=== PATIENT | male | born 1960 | race Caucasian/White ===

== ENCOUNTER → 2019-04-06 | Outpatient (CLI) | payer OTHER ==
[~2019-04-06] MED LIST: ATIVAN0.5 MG; FLONASE; LISINOPRIL20 MG; NEXIUM; NORCO 5-325 TA1 EACH PO; SIMVASTATIN40 MG; VITAMIN D 5050000 I1
[2019-04-06 09:54] LABS: ABSOLUTE EOSINOPHILS 0.2 thou/uL (0.0-0.7); ABSOLUTE LYMPHOCYTES 1.5 thou/uL (0.8-5.3); ABSOLUTE MONOCYTES 0.4 thou/uL (0.0-1.2); ABSOLUTE NEUTROPHILS 2.5 thou/uL (1.6-8.1); BASOPHILS 0.8 %; EOSINOPHILS 3.5 %; HEMATOCRIT 45.6 % (42.0-52.0); HEMOGLOBIN 15.5 gm/dL (14.0-18.0); LYMPHOCYTES 32.5 %; MCH 29.2 pg (26.0-34.0); MCHC 34.1 g/dL (28.0-37.0); MCV 85.7 fL (80.0-100.0); MONOCYTES 7.7 %; MPV 7.7 fl. (7.2-11.1); NUCLEATED RBCS 0 /100WBC; PLATELET COUNT* 141 thou/uL (150-400); POLYS 55.5 %; RBC 5.32 mil/uL (4.50-6.00); WBC 4.6 thou/uL (4.0-11.0)
[2019-04-06 09:59] LABS: URINE BILIRUBIN NEGATIVE (Negative); URINE BLOOD NEGATIVE (Negative); URINE CLARITY CLEAR; URINE COLOR YELLOW; URINE GLUCOSE-RANDOM NEGATIVE (Negative); URINE KETONES NEGATIVE (Negative); URINE LEUKOCYTES-REFLEX NEGATIVE (Negative); URINE NITRITE-REFLEX NEGATIVE (Negative); URINE PROTEIN NEGATIVE (Negative); URINE SPECIFIC GRAVITY <= 1.005 (1.005-1.030); URINE UROBILINOGEN 0.2 E.U./dl (0.2-1.0)
[2019-04-06 10:03] LABS: ALBUMIN 4.1 g/dL (3.4-5.0); ALKALINE PHOSPHATASE 82 U/L (46-116); ANION GAP 5 mmol/L (7-16); BUN 15 mg/dL (7-18); CHLORIDE 106 mmol/L (98-107); CHOLESTEROL 173 mg/dL (<200); CO2 31 mmol/L (21-32); CREATININE 1.1 mg/dL (0.6-1.3); GLUCOSE 99 mg/dL (70-99); HDL CHOLESTEROL 38 mg/dL (>40); LDL CHOLESTEROL 114 mg/dL (<100); POTASSIUM 3.7 mmol/L (3.5-5.1); SERUM ASSESSMENT Clear; SGOT 27 U/L (15-37); SGPT 36 U/L (30-65); SODIUM 142 mmol/L (136-145); TC:HDL 4.6 Ratio (Not establshd); TOTAL BILIRUBIN 0.7 mg/dL (<0.1-1.0); TOTAL PROTEIN 7.3 g/dL (6.4-8.2); TRIGLYCERIDE 105 mg/dL (<150); VLDL 21 mg/dL (<40)
[2019-04-06 10:58] LABS: ESR (SEDRATE) 2 mm/hr (0-20)
[2019-04-06 23:08] LABS: GLYCOHEMOGLOBIN (HGB A1C) 5.7 % (4.8-5.6)
== END ==
LOC: M.LAB 09:18
PROVIDERS: Internal Medicine
DX: J01.21 Acute recurrent ethmoidal sinusitis (principal); R53.81 Other malaise

== ENCOUNTER → 2019-08-26 | Outpatient (CLI) | payer OTHER ==
[2019-08-26 17:59] LABS: ABSOLUTE BASOPHILS 0.1 thou/uL (0.0-0.2); ABSOLUTE EOSINOPHILS 0.2 thou/uL (0.0-0.7); ABSOLUTE MONOCYTES 0.5 thou/uL (0.0-1.2); BASOPHILS 0.9 %; EOSINOPHILS 2.7 %; HEMATOCRIT 42.5 % (42.0-52.0); HEMOGLOBIN 15.1 gm/dL (14.0-18.0); LYMPHOCYTES 29.5 %; MCH 29.5 pg (26.0-34.0); MCHC 35.4 g/dL (28.0-37.0); MCV 83.3 fL (80.0-100.0); MONOCYTES 7.2 %; MPV 7.4 fl. (7.2-11.1); NUCLEATED RBCS 0 /100WBC; PLATELET COUNT* 160 thou/uL (150-400); POLYS 59.7 %; RDW-CV 14.3 % (10.5-14.5); WBC 6.6 thou/uL (4.0-11.0)
[2019-08-26 18:20] LABS: ALBUMIN 4.3 g/dL (3.4-5.0); CALCIUM 8.6 mg/dL (8.5-10.1); CREATININE 1.1 mg/dL (0.6-1.3); MAGNESIUM 2.1 mg/dL (1.8-2.4); POTASSIUM 3.8 mmol/L (3.5-5.1); TOTAL BILIRUBIN 0.5 mg/dL (<0.1-1.0); TOTAL PROTEIN 7.3 g/dL (6.4-8.2)
[2019-08-26 18:24] LABS: % SATURATION 19 % (20-39); IRON 62 ug/dL (50-175)
[2019-08-26 19:12] LABS: ESR (SEDRATE) 1 mm/hr (0-20)
== END ==
LOC: M.LAB 17:02
PROVIDERS: Internal Medicine
DX: R05 Cough (principal); R51 Headache; R53.83 Other fatigue; R09.89 Other specified symptoms and signs involving the circulatory and respiratory systems; R50.9 Fever, unspecified

== ENCOUNTER → 2019-09-08 | Outpatient (CLI) | payer OTHER ==
--- NOTE | 2019-09-14 15:35 | SLEEP ---
[address] [address] SLEEP STUDY REPORT Name: JOSE MARIA GOLDSTEIN Room: [facility]#: [id number] Admission: 09/08/19 Attend Phys: Jason Kay MD Discharge: Date of : 60 Report #: [id number] THIS REPORT FOR: //name// CC: Jason Kay This study has been reviewed in its entirety by a board certified sleep specialist DATE OF SERVICE: 09/08/2019 SLEEP STUDY REFERRING PHYSICIAN: The patient is 58-year-old who weighs 184 pounds with a BMI of 28.8. The patient's [place] score was 10. The patient underwent home sleep study performed at [facility]. Total recording time was 528 minutes. During the night study, the patient had 274 obstructive apneas, no central or mixed apneas and 44 hypopneas. The patient's apnea hypopnea index was 38 per hour. Nocturnal oximetry study revealed an average oxygen saturation of 92% with the lowest of 74%. 67% of time oxygen saturation remained less than 90% and 21% time remained less than 85%. Mean heart rate 60 beats per minute. IMPRESSION: 1. Severe sleep apnea-hypopnea syndrome at an AHI of 38 per hour. 2. Alzklghp-hz-iivxds nocturnal hypoxia secondary to obstructive sleep apnea. RECOMMENDATIONS: 1. The patient would benefit from treatment of sleep apnea with CPAP. This can be done as an in-lab CPAP titration study versus home auto-titration study. 2. Once the patient is optimally treated with CPAP, then follow up in 4-6 weeks to assess compliance and to document clinical improvement. 3. Weight loss is advised. 4. Avoid [employer] depressants. 5. Caution regarding driving until symptoms of sleep apnea resolved with the use of CPAP. <ELECTRONICALLY SIGNED> By: Alexander Sheppard MD 09/14/19 1535 [id number] [id number] Sheppard MD /nt
== END ==
LOC: M.SLEEPLAB 09-04 14:30
DX: G47.30 Sleep apnea, unspecified (principal); G47.33 Obstructive sleep apnea (adult) (pediatric); R09.02 Hypoxemia

== ENCOUNTER → 2019-09-14 | Outpatient (CLI) | payer OTHER ==
--- NOTE | 2019-09-14 16:32 | CARDNUC ---
[place] [address] CARDIAC NUCLEAR IMAGING REPORT Name: JOSE MARIA GOLDSTEIN Room: [facility]#: [id number] Admission: 09/14/19 Attend Phys: Jason Kay, Discharge: Date of : 60 Date of Service: 09/14/19 1631 Report #: [id number] THIS REPORT FOR: //name// APPROVED REPORT Imaging Protocol: Rest Tc-99m/Stress Tc-99m 1 day Study performed: 09/14/2019 09:41:16 Indication: Fatigue Patient Location: Out-Patient Stress Tech: Nichelle Mccain Stress Nurse: Ivelisse Lira RN NM Tech:FRANKLIN Nunez Ht: 5 ft 7 in Wt: 185 lbs BSA: 1.96 m2 BMI: 28.97 Medical History Medical History: Angina, Fatigue, HTN, Hyperlipidemia. Medications: Lisinopril, Simvastatin. Allergies: Augmentin, Avelox, Doxycycline, Morphine, Nitrous Oxide. Cardiac Risk Factors: Age, FHX of CAD, HTN, Hyperlipidemia. Previous Cardiac Procedures: None Pretest Chest Pain Characteristics: No chest pain Exercise History: Physically active Physical Disabilities: None reported Meds Held (24 hrs): Lisinopril Resting Data Rest SPECT myocardial perfusion imaging was performed in supine position 30 minutes following the intravenous injection of 11.3 mCi of Tc-99m Sestamibi. Time of rest injection: 744 Date: 09/14/2019 The images were gated to evaluate regional wall motion and calculate left ventricular ejection fraction. Administration Route: IV Administration Site: Right AC Exercise Stress At peak stress, the patient was injected intravenously with 32.4mCi of Tc-99m Sestamibi. Time of stress injection: 944 Date: 09/14/2019 Administration Route: IV Administration Site: [place] [address] CARDIAC NUCLEAR IMAGING REPORT Name: JOSE MARIA GOLDSTEIN Room: [facility]#: [id number] Admission: 09/14/19 Attend Phys: Jason Kay, Discharge: Date of : 60 Date of Service: 09/14/19 1631 Report #: [id number] Gated Stress SPECT was performed 30 minutes after stress injection. The images were gated to evaluate regional wall motion and calculate left ventricular ejection fraction. Prone imaging was performed. Stress Test Details Stress Test: Exercise stress testing was performed using a Onofre protocol. HR Max Heart Rate (APMHR): 162 bpm Resting HR: 84 bpm Target HR (85% APMHR): 137 bpm Max HR Achieved: 152 bpm % of APMHR: 93 Recovery HR: 102 bpm BP Resting BP: 167/112 mmHg Max BP: 221/101 mmHg Recovery BP: 155/110 mmHg ECG Resting ECG: Sinus Rhythm Stress ECG: Sinus Tachycardia ST Change: None Arrhythmia: None Recovery ECG: Sinus Rhythm Recovery ST Change: None Recovery Arrhythmia: None Clinical Reason for Termination: Maximal effort, Completed protocol Stress Symptoms: Leg Fatigue, Dyspnea. Exercise duration: 8 min 54 sec Exercise capacity: 10.16 METs Overall Exercise Capacity for Age: Normal The patient tolerated standard Onofre protocol exercise without significant cardiac symptoms. Nurse Comments A 58 year old male presented for a Onofre Protocol Nuclear Stress Test r/t increased fatigue. Treadmill well tolerated. Recovery unremarkable with continued HTN, asymptomatic. Patient was escorted by staff to Nuclear Medicine for imaging. Patient stated he felt good at that time. [place] [address] CARDIAC NUCLEAR IMAGING REPORT Name: JOSE MARIA GOLDSTEIN Room: [facility]#: [id number] Admission: 09/14/19 Attend Phys: Jason Kay, Discharge: Date of : 60 Date of Service: 09/14/19 1631 Report #: [id number] The baseline 12-lead EKG shows sinus rhythm without significant ST segment abnormality. EKGs obtained during and post exercise showed sinus rhythm and sinus tachycardia with no significant ST segment changes when compared to baseline. There were no stress-induced arrhythmias. Study Quality Study: Good Artifact: No artifact Study Data At rest, the left ventricular ejection fraction was 58%.. Post stress, the left ventricular ejection was 60%.. TID = 0.88. Perfusion Myocardial perfusion images obtained at rest and post exercise stress show uniform uptake of the radioisotope throughout the myocardium with no defect to suggest infarct or ischemia. Wall Motion Normal left ventricular wall motion. Nuclear Conclusion ECG Findings: negative for ischemia Clinical Findings: negative for ischemia Nuclear Findings: negative for ischemia Exercise Capacity: normal Left Ventricular Function: normal Risk Study: low Myocardial perfusion images show no defect to suggest infarct or ischemia. Left ventricular systolic function appears normal on gated studies. This is a low risk study. <Conclusion> The baseline 12-lead EKG shows sinus rhythm without significant ST segment abnormality. EKGs obtained during and post exercise showed sinus rhythm and sinus tachycardia with no significant ST segment changes when compared to baseline. There were no stress-induced arrhythmias. <ELECTRONICALLY SIGNED> By: Piero Go MD, FACC 09/14/19 1631 1631 1631 Piero Go MD, FACC /INF
== END ==
LOC: M.CRD 08-27 07:33 → M.NUC 07:33
DX: R09.89 Other specified symptoms and signs involving the circulatory and respiratory systems (principal); R53.83 Other fatigue; I10 Essential (primary) hypertension; E78.5 Hyperlipidemia, unspecified; Z79.899 Other long term (current) drug therapy; Z88.1 Allergy status to other antibiotic agents; Z88.5 Allergy status to narcotic agent; Z88.8 Allergy status to other drugs, medicaments and biological substances

== ENCOUNTER → 2019-10-22 | Outpatient (CLI) | payer OTHER ==
[2019-10-22 15:47] LABS: ABSOLUTE BASOPHILS 0.1 thou/uL (0.0-0.2); ABSOLUTE EOSINOPHILS 0.2 thou/uL (0.0-0.7); ABSOLUTE LYMPHOCYTES 2.1 thou/uL (0.8-5.3); ABSOLUTE MONOCYTES 0.5 thou/uL (0.0-1.2); ABSOLUTE NEUTROPHILS 5.3 thou/uL (1.6-8.1); BASOPHILS 0.7 %; EOSINOPHILS 2.3 %; HEMATOCRIT 47.1 % (42.0-52.0); HEMOGLOBIN 16.2 gm/dL (14.0-18.0); LYMPHOCYTES 25.7 %; MCH 29.1 pg (26.0-34.0); MCHC 34.4 g/dL (28.0-37.0); MCV 84.6 fL (80.0-100.0); MONOCYTES 6.7 %; MPV 7.7 fl. (7.2-11.1); NUCLEATED RBCS 0 /100WBC; PLATELET COUNT* 190 thou/uL (150-400); POLYS 64.6 %; RBC 5.56 mil/uL (4.50-6.00); RDW-CV 13.8 % (10.5-14.5); WBC 8.1 thou/uL (4.0-11.0)
[2019-10-22 16:23] LABS: INFLUENZA A ANTIGEN Negative (Negative); INFLUENZA B ANTIGEN Negative (Negative)
== END ==
LOC: M.LAB 15:03
PROVIDERS: Internal Medicine
DX: J02.9 Acute pharyngitis, unspecified (principal); M25.522 Pain in left elbow

== ENCOUNTER → 2019-10-27 | Outpatient (CLI) | payer OTHER | LOC: M.MRI 08:19 | DX: S46.312A Strain of muscle, fascia and tendon of triceps, left arm, initial encounter (principal); X58.XXXA Exposure to other specified factors, initial encounter; Y93.89 Activity, other specified; Y92.89 Other specified places as the place of occurrence of the external cause; Y99.8 Other external cause status ==

== ENCOUNTER → 2019-11-04 | Outpatient (CLI) | payer OTHER ==
[2019-11-04 09:59] LABS: CREATININE 0.9 mg/dL (0.6-1.3)
== END ==
LOC: M.ULTRA 09:12 → M.LAB 09:12 → M.CT 09:30 → M.ULTRA 10:30 → M.CT 11:30
PROVIDERS: Internal Medicine
DX: I25.10 Atherosclerotic heart disease of native coronary artery without angina pectoris (principal); J84.10 Pulmonary fibrosis, unspecified; K76.0 Fatty (change of) liver, not elsewhere classified; K57.30 Diverticulosis of large intestine without perforation or abscess without bleeding; N40.0 Benign prostatic hyperplasia without lower urinary tract symptoms; I10 Essential (primary) hypertension; E78.2 Mixed hyperlipidemia; R05 Cough

== ENCOUNTER → 2019-11-05 | Outpatient (CLI) | payer OTHER | LOC: M.LAB 14:31 | DX: I10 Essential (primary) hypertension (principal); E78.2 Mixed hyperlipidemia ==

== ENCOUNTER → 2021-06-14 | Outpatient (CLI) | payer OTHER ==
[2021-06-14 09:37] LABS: ABSOLUTE EOSINOPHILS 0.2 thou/uL (0.0-0.7); ABSOLUTE LYMPHOCYTES 1.6 thou/uL (0.8-5.3); ABSOLUTE MONOCYTES 0.4 thou/uL (0.0-1.2); ABSOLUTE NEUTROPHILS 3.3 thou/uL (1.6-8.1); BASOPHILS 0.6 %; EOSINOPHILS 2.8 %; HEMATOCRIT 44.2 % (42.0-52.0); HEMOGLOBIN 15.2 gm/dL (14.0-18.0); LYMPHOCYTES 29.3 %; MCH 29.3 pg (26.0-34.0); MCHC 34.3 g/dL (28.0-37.0); MCV 85.5 fL (80.0-100.0); MONOCYTES 7.4 %; NUCLEATED RBCS 0 /100WBC; PLATELET COUNT* 159 thou/uL (150-400); POLYS 59.9 %; RBC 5.17 mil/uL (4.50-6.00); RDW-CV 13.4 % (10.5-14.5); WBC 5.6 thou/uL (4.0-11.0)
[2021-06-14 09:52] LABS: ALBUMIN 4.1 g/dL (3.4-5.0); ALKALINE PHOSPHATASE 94 U/L (46-116); ANION GAP 9 mmol/L (7-16); BUN 16 mg/dL (7-18); CHLORIDE 105 mmol/L (98-107); CHOLESTEROL 146 mg/dL (<200); CO2 29 mmol/L (21-32); CREATININE 1.1 mg/dL (0.6-1.3); GLUCOSE 104 mg/dL (70-99); HDL CHOLESTEROL 34 mg/dL (>40); LDL CHOLESTEROL 80 mg/dL (<100); SGOT 25 U/L (15-37); SGPT 31 U/L (30-65); SODIUM 143 mmol/L (136-145); TC:HDL 4.3 Ratio (Not establshd); TOTAL BILIRUBIN 0.7 mg/dL (<0.1-1.0); TOTAL PROTEIN 7.5 g/dL (6.4-8.2); TRIGLYCERIDE 162 mg/dL (<150); VLDL 32 mg/dL (<40)
[2021-06-14 09:57] LABS: SERUM ASSESSMENT Clear
[2021-06-15 04:06] LABS: GLYCOHEMOGLOBIN (HGB A1C) 5.9 % (4.8-5.6)
== END ==
LOC: M.LAB 09:17
PROVIDERS: ATTEND Family Medicine
DX: Z13.1 Encounter for screening for diabetes mellitus (principal); Z13.29 Encounter for screening for other suspected endocrine disorder; I10 Essential (primary) hypertension; G47.33 Obstructive sleep apnea (adult) (pediatric); E78.5 Hyperlipidemia, unspecified; G47.00 Insomnia, unspecified

== ENCOUNTER → 2021-07-27 | Outpatient (CLI) | payer OTHER | LOC: M.MRI 07:21 | PROVIDERS: ATTEND Family Medicine | DX: M48.061 Spinal stenosis, lumbar region without neurogenic claudication (principal); M48.07 Spinal stenosis, lumbosacral region; M47.816 Spondylosis without myelopathy or radiculopathy, lumbar region ==